=== PATIENT | female | born 1940 | race Caucasian/White ===

== ENCOUNTER → 2021-02-22 | Outpatient (CLI) | payer OTHER | LOC: CT 07:33 | DX: R22.1 Localized swelling, mass and lump, neck (principal); H74.8X1 Other specified disorders of right middle ear and mastoid | CPT/HCPCS: 36415; 70491; 82565; 84520; Q9967 ==

== ENCOUNTER 2021-08-19 23:19 | Emergency (ER) | payer OTHER ==
[2021-08-20 00:30] LABS: HEMOGLOBIN 14.9 gm/dl (12.3-15.3); RED BLOOD COUNT 5.1 M/UL (4.00-5.10); WHITE BLOOD COUNT 17.4 K/UL (4.5-11.0)
[2021-08-20 00:44] LABS: BUN/CREATININE RATIO 34 (0-10)
[2021-08-20] MEDS ORDERED: ZOFRAN ODT 4 MG4 MG PO ×2 (02:59→03:03)
== END 2021-08-20 03:23 | disposition home or self-care (01) ==
LOC: ER1 23:19
PROVIDERS: Family Medicine
DX: R11.2 Nausea with vomiting, unspecified (principal); E78.5 Hyperlipidemia, unspecified; I10 Essential (primary) hypertension
CPT/HCPCS: 80053; 81001; 82550; 82553; 83605; 83690; 83735; 84484; 85025; 93005; 96374; 99284; J2405

== ENCOUNTER 2021-08-21 14:07 | Emergency (ER) | payer OTHER ==
[~2021-08-21 14:07] MED LIST: ZOFRAN ODT 4 MG4 MG PO
[2021-08-21 16:06] LABS: HEMOGLOBIN 14.2 gm/dl (12.3-15.3); RED BLOOD COUNT 4.96 M/UL (4.00-5.10)
[2021-08-21 16:07] LABS: WHITE BLOOD COUNT 10.1 K/UL (4.5-11.0)
[2021-08-21 16:42] LABS: BUN/CREATININE RATIO 25 (0-10)
== END 2021-08-21 20:59 | disposition home or self-care (01) ==
LOC: ER1 14:07
PROVIDERS: Emergency Medicine
DX: I10 Essential (primary) hypertension (principal); E78.5 Hyperlipidemia, unspecified
CPT/HCPCS: 71045; 80053; 82550; 82553; 84484; 85025; 93005; 99284